=== PATIENT | female | born 1960 | race Caucasian/White ===

== ENCOUNTER 2025-02-01 12:02 | Outpatient (CLI) | payer MEDICARE, SELFPAY ==
[2025-02-01] VITALS (8 sets, daily range): BP systolic 123–148; BP diastolic 73–87; PULSE 76–93; RESP 16–18; O2SAT 95–97; BMI 43.6
--- NOTE | 2025-02-01 12:18 | CT_ITS ---
PROCEDURE: LIMITED CHEST CT CARDIAC ONLY REASON FOR EXAM: DYSPNEA/NSVT/CAD TECHNIQUE: CT for coronary artery calcium scoring. One or more dose reduction techniques were used (e.g., Automated exposure control, adjustment of the mA and/or kV according to patient size, use of iterative reconstruction technique). COMPARISON: None. CT/Limited Chest CT Cardiac Only IMPRESSION: CT was performed for coronary artery calcium scoring. Limited imaging of the lungs demonstrates no acute disease. No pleural effusio n or pneumothorax is seen in visualized areas. No adenopathy is seen in visualized areas. A small sliding-type hiatal hernia is seen. Diffuse fatty infiltration of the liver is seen, upon limited evaluation Reading Location: [place] [id number]
[2025-02-01] MEDS: Metoprolol Tartrate 5 MG/5 ML Vial IV ×3 (13:01→13:23)
[2025-02-01] MEDS: Nitroglycerin SL (ED/IMG/CATH) 0.4 MG TABLET SL (13:39)
--- NOTE | 2025-02-04 09:25 | CCTA.WCONT ---
CCTA w/Cont Coronary Arteries Date of Study:: 02/01/25 Dyspnea Coronary Calcium Scoring: High-resolution Computed Tomographic imaging of the chest was performed on [02-24], with particular attention paid to the coronary arteries. Intravenous contrast agent was administered per protocol and images reconstructed and displayed. The image quality was noted to be suboptimal for a variety of reasons. LEFT MAIN CORONARY ARTERY: This arises from the left coronary cusp with no significant stenosis noted and bifurcates in the left anterior descending artery and circumflex artery. Coronary calcium score of 61.6. [] LEFT ANTERIOR DESCENDING CORONARY ARTERY: This vessel is diffusely diseased with moderate calcification and mild to moderate stenosis. No high-grade obvious stenosis is noted the coronary calcium score is noted to be 247. [] LEFT CIRCUMFLEX CORONARY ARTERY: The left circumflex artery is not well-delineated and is likely a very small vessel. Coronary calcification here is mild at 169 [] RIGHT CORONARY ARTERY: The right coronary artery is a dominant vessel and in the proximal and mid segments with diffuse calcification with at least moderate stenosis and a total coronary calcium score of 690. [] [] CORONARY CALCIUM SCORE: Total Agatston score is 1168 placing the patient at over 90th percentile ranking. Conclusion: Suboptimal CT angiogram demonstrating moderate disease noted in the left anterior descending artery and the right coronary artery with significant calcification noted in the right coronary artery and a total coronary calcium score of 1168. []
== END 2025-02-01 23:59 | disposition home or self-care (01) ==
PROVIDERS: PCP Internal Medicine; Referring Provider Internal Medicine Cardiovascular Disease; Visit Provider Internal Medicine Cardiovascular Disease
DX: R06.09 Other forms of dyspnea (principal); I47.29 Other ventricular tachycardia; I25.10 Atherosclerotic heart disease of native coronary artery without angina pectoris; K44.9 Diaphragmatic hernia without obstruction or gangrene
CPT/HCPCS: 96374; 75571; 75574; 76380; A4216